=== PATIENT | male | born 1995 | race Caucasian/White ===

== ENCOUNTER 2017-09-03 20:22 | Emergency (ER) | payer MEDICAID ==
[~2017-09-03] VITALS: Ht 185.4 cm; Wt 77.1 kg
[2017-09-03 20:30] VITALS: BP_SYST 141
--- NOTE | 2017-09-03 20:50 | NUR ---
Placed in room H1 . Brought in by care BLS. Placed on hull and deck remover, blood pressure machine and pulse oximeter. To gown for exam. Side rails up. Report given to RODRIGUE Guerra.
--- NOTE | 2017-09-03 20:55 | NUR ---
Patient to ER via BLS ambulance with c/o lower abdominal pain, rectal bleeding and nausea x 1 day. Patient denies vomiting, or diarrhea. Patient reports that he was seen in an outside hospital([place]) yesterday for same complaint, had workup which was negative per patient. Patient able to ambulate from ambulance gurney to ER [facility] with slow, steady gait in no acute distress. Patient awaiting evaluation by ER MD. Will continue to observe and assess.
--- NOTE | 2017-09-03 21:50 | NUR ---
Patient resting quietly in no acute distress, awaiting evaluation by ER MD. Will continue to observe and assess.
--- NOTE | 2017-09-03 22:50 | NUR ---
Dr Almonte at bedside to evaluate patient.
[2017-09-03] MEDS ORDERED: OXYCODONE/ACETAMINOPHEN 5-325 TABLET PO ONE (23:00)
[2017-09-03] MEDS ORDERED: ONDANSETRON 4 MG ODT TAB PO ONE (23:00)
--- NOTE | 2017-09-03 23:10 | NUR ---
Patient sitting at side of gurney with legs dangling over the side in no acute distress. Will continue to observe and assess.
--- NOTE | 2017-09-03 23:55 | NUR ---
Patient resting quietly in no acute distress, sitting on the side of the gurney with legs dangling. Patient reports no change in pain after taking the pain medication. Will notify Dr Almonte
--- NOTE | 2017-09-04 00:35 | NUR ---
Patient moved to bed 7. Patient resting quietly in no acute distress.
--- NOTE | 2017-09-04 01:30 | NUR ---
Patient resting quietly in no acute distress with female visitor at bedside. Will continue to observe and assess.
--- NOTE | 2017-09-04 02:30 | NUR ---
Assessment remains unchanged-awaiting dispo.
--- NOTE | 2017-09-04 03:00 | NUR ---
Dr Almonte at bedside speaking with patient regarding plan of care, questions answered by Dr Almonte.
--- NOTE | 2017-09-04 03:13 | NUR ---
Patient to radiology for CT scan of abdomen and pelvis without contrast. Patient ambulating with slow, steady gait. Awaiting results and dispo.
--- NOTE | 2017-09-04 03:24 | NUR ---
Patient back from CT scan in stable condition.
--- NOTE | 2017-09-04 03:26 | NUR ---
Dr Almonte is aware of patient's pain level. Patient is able to ambulate with slow, steady gait without difficulty-no increase in pain or sob upon exertion. Skins are warm and dry to touch. Female visitor at bedside.
[2017-09-04 04:46] VITALS: BP_SYST 115
--- NOTE | 2017-09-04 04:46 | NUR ---
Patient given written and verbal discharge instructions and verbalizes understanding. ER MD discussed with patient the results and treatment provided. Patient in stable condition. ID arm band removed. IV catheter removed intact and dressing applied, no active bleeding. Rx of Bascom given. Patient educated on pain management and to follow up with PMD. Pain Scale 0/10 . Opportunity for questions provided and answered.
== END 2017-09-04 04:46 | disposition home or self-care (01) ==
LOC: SED 20:22
DX: K62.5 Hemorrhage of anus and rectum (principal); R10.32 Left lower quadrant pain; R11.0 Nausea
CPT/HCPCS: 74176; 99284; Q0162

== ENCOUNTER 2017-09-16 13:01 | Emergency (ER) | payer MEDICAID ==
[~2017-09-16] VITALS: Ht 185.4 cm; Wt 79.4 kg
--- NOTE | 2017-09-16 13:18 | NUR ---
Called for pt unabel to locate pt for triage.
--- NOTE | 2017-09-16 13:32 | NUR ---
Called for pt to be triaged, unable to locate pt.
[2017-09-16 13:46] VITALS: BP_SYST 150
[2017-09-16 14:16] LABS: HEMATOCRIT 47.3 % (36-54); HEMOGLOBIN 15.6 g/dL (14.0-18.0); LYMPHOCYTES # (AUTO) 1.5 K/uL (1.0-5.5); LYMPHOCYTES % (AUTO) 13.6 % (20.5-51.5); MEAN CORPUSCULAR HEMOGLOBIN 31 pg (27-31); MEAN CORPUSCULAR HGB CONC 33 % (32-36); MEAN CORPUSCULAR VOLUME 95 fL (79.0-98.0); MONOCYTES # (AUTO) 0.5 K/uL (0.0-1.0); MONOCYTES % (AUTO) 4.2 % (1.7-9.3); NEUTROPHILS # (AUTO) 8.4 K/uL (1.8-7.7); PLATELET COUNT (AUTO) 307 K/uL (130-430); RED BLOOD CELL COUNT(AUTO) 4.98 MIL/uL (4.2-6.2); RED CELL DISTRIBUTION WIDTH 12.9 % (9.0-15.0); WHITE BLOOD COUNT (AUTO) 10.8 K/uL (4.8-10.8)
[2017-09-16 14:19] LABS: BASOPHILS # (AUTO) 0.1 K/uL (0.0-0.2); BASOPHILS % (AUTO) 0.6 % (0.0-2.0); EOSINOPHILS # (AUTO) 0.2 K/uL (0.0-0.4); EOSINOPHILS % (AUTO) 1.6 % (0.0-4.0)
[2017-09-16 14:36] LABS: CALCIUM 9.4 mg/dL (8.4-11.0); CREATININE 1.05 mg/dL (0.55-1.30); POTASSIUM 4.7 mmol/L (3.5-5.1)
[2017-09-16 14:41] LABS: ALBUMIN 4.2 g/dL (3.4-4.8); TOTAL BILIRUBIN 0.2 mg/dL (0.0-1.0)
[2017-09-16 14:47] LABS: PROTHROMBIN TIME 10.4 SECS (9.5-12.5)
--- NOTE | 2017-09-16 16:20 | NUR ---
Patient states that he has to go. His ride is leaving. I advised the patient that he should stay for medical evaluation. Patient states he will return later. I discussed with the patient that this is ill advised and he is putting himself at risk. Patient states he is leaving anyway.
== END 2017-09-16 16:20 | disposition left against medical advice (07) ==
LOC: SED 13:01
DX: K62.5 Hemorrhage of anus and rectum (principal); Z53.21 Procedure and treatment not carried out due to patient leaving prior to being seen by health care provider
CPT/HCPCS: 36415; 80053; 85025; 85610-TC; 85730-TC; 99281

== ENCOUNTER 2017-09-16 19:31 | Emergency (ER) | payer MEDICAID ==
[~2017-09-16] VITALS: Ht 185.4 cm; Wt 79.4 kg
[2017-09-16 19:37] VITALS: BP_SYST 119
--- NOTE | 2017-09-16 20:42 | NUR ---
Note long in EDM - 09/17/17 at 0358 by DESIREE Patient given written and verbal discharge instructions and verbalizes understanding. ER discussed with patient the results and treatment provided. Patient in stable condition. ID arm band removed. Rx of Anuel and robertabizen given. Patient educated on pain management and to follow up with PMD. Pain Scale 0/10. Opportunity for questions provided and answered.
--- NOTE | 2017-09-16 20:58 | NUR ---
Patient to ER bed 7 to gown for evaluation. Side rails up.
--- NOTE | 2017-09-16 21:00 | NUR ---
Pt came in for one month of intermittent rectal bleeding with abd pain. Denies N,V, and D. Will continue to monitor. No distress noted.
--- NOTE | 2017-09-16 21:05 | NUR ---
ER Dr. Randolph at bedside examining patient.
--- NOTE | 2017-09-16 21:10 | NUR ---
Note robbieone in EDM - 09/17/17 at 0414 by DESIREE Patient given written and verbal discharge instructions and verbalizes understanding. ER discussed with patient the results and treatment provided. Patient in stable condition. ID arm band removed. Rx of Anuel and robertabid given. Patient educated on pain management and to follow up with PMD. Pain Scale 0/10. Opportunity for questions provided and answered.
[2017-09-16 21:15] VITALS: BP_SYST 119
--- NOTE | 2017-09-16 21:15 | NUR ---
Note long in EDM - 09/17/17 at 0433 by DESIREE Patient given written and verbal discharge instructions and verbalizes understanding. ER discussed with patient the results and treatment provided. Patient in stable condition. ID arm band removed. Rx of Anuel and robertabid given. Patient educated on pain management and to follow up with PMD. Pain Scale 0/10. Opportunity for questions provided and answered.
--- NOTE | 2017-09-16 21:15 | NUR ---
Patient given written and verbal discharge instructions and verbalizes understanding. ER MD discussed with patient the results and treatment provided. Patient in stable condition. ID arm band removed. Rx of flagyl and norco given. Patient educated on pain management and to follow up with PMD. Pain Scale 0/10. Opportunity for questions provided and answered.
== END 2017-09-16 21:15 | disposition home or self-care (01) ==
LOC: SED 19:31
DX: K62.5 Hemorrhage of anus and rectum (principal); K52.9 Noninfective gastroenteritis and colitis, unspecified
CPT/HCPCS: 99283

== ENCOUNTER 2018-07-02 19:46 | Emergency (ER) | payer MEDICAID ==
[~2018-07-02] VITALS: Ht 177.8 cm; Wt 81.6 kg
--- NOTE | 2018-07-02 19:55 | NUR ---
Patient to ER bed 4 to gown for evaluation. Side rails up. Report given to Charlie HUSAIN.
[2018-07-02 20:00] VITALS: BP_SYST 129
--- NOTE | 2018-07-02 20:00 | NUR ---
Patient to ER via triage with c/o abdominal cramping with blood in stool x 3 days, patient is awake, alert and oriented in no acute distress, vital signs stable, respirations even and unlabored, skin warm and dry to touch. Patient able to ambulate without difficulty to bed 4 with slow, steady gait. Awaiting evaluation by ER MD, will continue to observe and assess.
--- NOTE | 2018-07-02 20:01 | NUR ---
Dr Mendieta at bedside to evaluate patient.
[2018-07-02] MEDS ORDERED: NACL 0.9% 1,000 ML IV ONE (20:09)
--- NOTE | 2018-07-02 20:35 | NUR ---
Patient to CT scan in stable condition via gurney.
[2018-07-02] MEDS ORDERED: IOHEXOL 100 ML IV ONE (20:36)
--- NOTE | 2018-07-02 20:45 | NUR ---
Patient returned from CT scan in stable condition via gurney, awaiting results and dispo.
[2018-07-02 20:46] LABS: BILIRUBIN,URINE NEGATIVE (NEGATIVE); BLOOD, URINE NEGATIVE (NEGATIVE); CLARITY/URINE CLEAR (CLEAR); COLOR,URINE YELLOW (YELLOW); GLUCOSE,URINE NEGATIVE (NEGATIVE); KETONES,URINE NEGATIVE (NEGATIVE); LEUKOCYTE ESTERASE ,URINE NEGATIVE (NEGATIVE); NITRITE, URINE NEGATIVE (NEGATIVE); PROTEIN URINE NEGATIVE (NEGATIVE); UROBILINOGEN,URINE 0.2 (0.2-1.0)
[2018-07-02 20:49] LABS: BASOPHILS # (AUTO) 0.1 K/uL (0.0-0.2); BASOPHILS % (AUTO) 1.2 % (0.0-2.0); EOSINOPHILS # (AUTO) 0.1 K/uL (0.0-0.4); EOSINOPHILS % (AUTO) 1.6 % (0.0-4.0); HEMATOCRIT 45.1 % (36-54); HEMOGLOBIN 14.9 g/dL (14.0-18.0); LYMPHOCYTES # (AUTO) 2.7 K/uL (1.0-5.5); LYMPHOCYTES % (AUTO) 32.7 % (20.5-51.5); MEAN CORPUSCULAR HEMOGLOBIN 32 pg (27-31); MEAN CORPUSCULAR HGB CONC 33 % (32-36); MEAN CORPUSCULAR VOLUME 96 fL (79.0-98.0); MONOCYTES # (AUTO) 0.7 K/uL (0.0-1.0); MONOCYTES % (AUTO) 7.9 % (1.7-9.3); NEUTROPHILS # (AUTO) 4.8 K/uL (1.8-7.7); NEUTROPHILS % (AUTO) 56.6 % (40.0-70.0); PLATELET COUNT (AUTO) 271 K/uL (130-430); RED BLOOD CELL COUNT(AUTO) 4.71 MIL/uL (4.2-6.2); RED CELL DISTRIBUTION WIDTH 12.8 % (9.0-15.0); WHITE BLOOD COUNT (AUTO) 8.4 K/uL (4.8-10.8)
[2018-07-02 20:59] LABS: CALCIUM 9.2 mg/dL (8.4-11.0); CREATININE 0.99 mg/dL (0.55-1.30)
[2018-07-02 21:04] LABS: ALBUMIN 3.9 g/dL (3.4-4.8); TOTAL BILIRUBIN 0.3 mg/dL (0.0-1.0)
--- NOTE | 2018-07-02 21:45 | NUR ---
Patient resting quietly in no acute distress, awaiting results and dispo. Will continue to observe and assess.
--- NOTE | 2018-07-02 22:00 | NUR ---
Patient reports that he is unable to provide a stool sample at this time. Awaiting imaging results and dispo.
--- NOTE | 2018-07-02 23:00 | NUR ---
Patient resting quietly in no acute distress with slow, even respirations, skin warm and dry to touch. Awaiting dispo.
[2018-07-02] MEDS ORDERED: metroNIDAZOLE 500 MG TABLET PO ONE (23:30)
[2018-07-02 23:50] VITALS: BP_SYST 121
--- NOTE | 2018-07-02 23:50 | NUR ---
Note undone in EDM - 07/03/18 at 0011 by [email or web address] Patient given written and verbal discharge instructions and verbalizes understanding. ER MD discussed with patient the results and treatment provided. Patient in stable condition. ID arm band removed. IV catheter removed intact and dressing applied, no active bleeding. Rx of Stephon given. Patient educated on pain management and to follow up with PMD. Pain Scale 3/10 tolerable for patient. Opportunity for questions provided and answered. Medication side effect fact sheet provided.
--- NOTE | 2018-07-02 23:50 | NUR ---
Patient given written and verbal discharge instructions and verbalizes understanding. ER MD discussed with patient the results and treatment provided. Patient in stable condition. ID arm band removed. IV catheter removed intact and dressing applied, no active bleeding. Rx of Morris and Flagyl given. Patient educated on pain management and to follow up with PMD. Pain Scale 3/10. Opportunity for questions provided and answered. Medication side effect fact sheet provided.
== END 2018-07-02 23:50 | disposition home or self-care (01) ==
LOC: SED 19:46
DX: K52.9 Noninfective gastroenteritis and colitis, unspecified (principal); F17.210 Nicotine dependence, cigarettes, uncomplicated; Z98.890 Other specified postprocedural states
CPT/HCPCS: 36415; 74177; 80053; 81003; 85025; 96360; 96361; 99285; J7030; Q9967

== ENCOUNTER 2018-07-21 13:43 | Emergency (ER) | payer MEDICAID ==
[~2018-07-21] VITALS: Ht 180.3 cm; Wt 85.3 kg
[2018-07-21 13:49] VITALS: BP_SYST 136
[2018-07-21] MEDS ORDERED: NACL 0.9% 1,000 ML IV ONE (14:19)
[2018-07-21 14:27] LABS: BILIRUBIN,URINE NEGATIVE (NEGATIVE); BLOOD, URINE NEGATIVE (NEGATIVE); CLARITY/URINE CLEAR (CLEAR); COLOR,URINE YELLOW (YELLOW); GLUCOSE,URINE NEGATIVE (NEGATIVE); KETONES,URINE NEGATIVE (NEGATIVE); LEUKOCYTE ESTERASE ,URINE TRACE (NEGATIVE); NITRITE, URINE NEGATIVE (NEGATIVE); PROTEIN URINE NEGATIVE (NEGATIVE); UROBILINOGEN,URINE 0.2 (0.2-1.0)
[2018-07-21 14:30] LABS: BASOPHILS % (AUTO) 0.5 % (0.0-2.0); EOSINOPHILS # (AUTO) 0.1 K/uL (0.0-0.4); EOSINOPHILS % (AUTO) 1.1 % (0.0-4.0); HEMATOCRIT 42.6 % (36-54); HEMOGLOBIN 14.4 g/dL (14.0-18.0); LYMPHOCYTES # (AUTO) 2.1 K/uL (1.0-5.5); MEAN CORPUSCULAR HEMOGLOBIN 32 pg (27-31); MEAN CORPUSCULAR HGB CONC 34 % (32-36); MEAN CORPUSCULAR VOLUME 94 fL (79.0-98.0); MONOCYTES # (AUTO) 0.6 K/uL (0.0-1.0); MONOCYTES % (AUTO) 8.1 % (1.7-9.3); NEUTROPHILS # (AUTO) 4.1 K/uL (1.8-7.7); NEUTROPHILS % (AUTO) 59.3 % (40.0-70.0); PLATELET COUNT (AUTO) 244 K/uL (130-430); RED BLOOD CELL COUNT(AUTO) 4.52 MIL/uL (4.2-6.2); RED CELL DISTRIBUTION WIDTH 13.1 % (9.0-15.0); WHITE BLOOD COUNT (AUTO) 6.9 K/uL (4.8-10.8)
[2018-07-21] MEDS ORDERED: KETOROLAC TROMETHAMINE 30 MG VIAL IVP ONE (14:30)
[2018-07-21] MEDS ORDERED: ONDANSETRON HCL 4 MG/2 ML VIAL IVP ONE (14:30)
[2018-07-21 14:37] LABS: CREATININE 1.04 mg/dL (0.55-1.30); POTASSIUM 3.9 mmol/L (3.5-5.1)
[2018-07-21 14:39] LABS: BACTERIA,URINE RARE /HPF (None Seen); MUCUS,URINE None Seen /LPF (None Seen); RBC,URINE 0-3 /HPF (0-3); WBC,URINE 0-3 /HPF (0-3)
[2018-07-21 14:44] LABS: ALBUMIN 4.1 g/dL (3.4-4.8); TOTAL BILIRUBIN 0.3 mg/dL (0.0-1.0)
[2018-07-21 16:28] VITALS: BP_SYST 134
== END 2018-07-21 16:28 | disposition home or self-care (01) ==
LOC: SED 13:43
DX: K62.5 Hemorrhage of anus and rectum (principal); R03.0 Elevated blood-pressure reading, without diagnosis of hypertension; Z87.891 Personal history of nicotine dependence
CPT/HCPCS: 36415; 80053; 81000; 83690; 85025; 87086; 96361; 96374; 96375; 99284; J1885; J2405; J7030

== ENCOUNTER 2018-10-19 19:43 | Emergency (ER) | payer MEDICAID, OTHER ==
[~2018-10-19] VITALS: Ht 180.3 cm; Wt 86.2 kg
[2018-10-19 20:02] VITALS: BP_SYST 148
[2018-10-19] MEDS ORDERED: KETOROLAC TROMETHAMINE 30 MG VIAL IM ONE (20:15)
[2018-10-19] MEDS ORDERED: traMADol HCL HCL 50 MG TABLET (ULTRAM) PO ONE (21:15)
[2018-10-19 21:30] VITALS: BP_SYST 145
== END 2018-10-19 21:30 | disposition home or self-care (01) ==
LOC: SED 19:43
DX: K03.81 Cracked tooth (principal); K04.7 Periapical abscess without sinus
CPT/HCPCS: 96372; 99283; J1885

== ENCOUNTER 2019-10-17 11:41 | Emergency (ER) | payer OTHER ==
[~2019-10-17] VITALS: Ht 177.8 cm; Wt 81.6 kg
[2019-10-17 11:58] VITALS: BP_SYST 112
--- NOTE | 2019-10-17 12:02 | NUR ---
Patient to ER bed 5 to gown for evaluation. Side rails up. Report given to JESUS HUSAIN.
--- NOTE | 2019-10-17 12:03 | NUR ---
Patient is awake, alert, and oriented x4. Patient is complaining of left ring finger pain 10/10, laceration to finger. Patient reports that he had a ring stuck on it with swelling. Ring was cut off in triage by RODRIGUE Monsivais.
--- NOTE | 2019-10-17 12:18 | NUR ---
ER Dr. Randolph at bedside examining patient.
[2019-10-17 12:40] VITALS: BP_SYST 112
--- NOTE | 2019-10-17 12:40 | NUR ---
Patient given written and verbal discharge instructions and verbalizes understanding. ER MD discussed with patient the results and treatment provided. Patient in stable condition. ID arm band removed. Patient educated on pain management and to follow up with PMD. Pain Scale 0/10. Opportunity for questions provided and answered. Medication side effect fact sheet provided.
[2019-10-17] MEDS ORDERED: BACITRACIN 1 GM OINT TP ONE (12:47)
[2019-10-17] MEDS ORDERED: BACITRACIN OPHTHALMIC OINT.3.5 GM OP SCH (21:00)
== END 2019-10-17 12:40 | disposition home or self-care (01) ==
LOC: SED 11:41
DX: M79.89 Other specified soft tissue disorders (principal); M79.645 Pain in left finger(s)
CPT/HCPCS: 99284

== ENCOUNTER 2022-04-28 16:19 | Emergency (ER) | payer OTHER ==
[~2022-04-28] VITALS: Ht 182.9 cm; Wt 74.8 kg
--- NOTE | 2022-04-28 16:22 | NUR ---
MD PAGE BEDSIDE FOR ASSESS.
[2022-04-28 16:25] VITALS: BP_SYST 122
--- NOTE | 2022-04-28 16:25 | NUR ---
PT TRIAGED AND TAKEN TO ROOM 5, REPORT GIVEN TO RODRIGUE PARSONS. PT STATES HE IS HAVING SEIZURE ACTIVITY AND C/P. PT NOTED WITH TREMORS. PT IS AAOX4. RESP E/U. NO R/A. PT DENIES N/V/D/C. PT HR IN 110S. REPORTS HX OF ASTHMA, PT IS PRESSENTLY TAKING PREDNISONE FOR ASTHMA AND ABT FOR UNKNOWN REASON. PT DISCHARGED FROM [facility] 04/27/2022 FOR DX OF ANXIETY. SIDERAILS UP X2.
--- NOTE | 2022-04-28 16:26 | NUR ---
DR. PAGE AT BEDSIDE.
[2022-04-28 17:17] LABS: BASOPHILS % (AUTO) 0.3 % (0.0-2.0); HEMATOCRIT 38.6 % (36-54); LYMPHOCYTES # (AUTO) 1.2 K/uL (1.0-5.5); LYMPHOCYTES % (AUTO) 10.4 % (20.5-51.5); MEAN CORPUSCULAR HEMOGLOBIN 31 pg (27-31); MEAN CORPUSCULAR HGB CONC 34 % (32-36); MEAN CORPUSCULAR VOLUME 93 fL (79.0-98.0); MONOCYTES # (AUTO) 0.5 K/uL (0.0-1.0); MONOCYTES % (AUTO) 3.8 % (1.7-9.3); NEUTROPHILS # (AUTO) 10.1 K/uL (1.8-7.7); NEUTROPHILS % (AUTO) 85.5 % (40.0-70.0); PLATELET COUNT (AUTO) 254 K/uL (130-430); RED BLOOD CELL COUNT(AUTO) 4.17 MIL/uL (4.2-6.2); RED CELL DISTRIBUTION WIDTH 15.6 % (9.0-15.0); WHITE BLOOD COUNT (AUTO) 11.8 K/uL (4.8-10.8)
[2022-04-28 17:21] LABS: ANION GAP 9 (5-15); CALCIUM 8.6 mg/dL (8.4-11.0); CHLORIDE 103 mmol/L (98-107); CREATININE 0.96 mg/dL (0.55-1.30); GLUCOSE 110 mg/dL (70-99); POTASSIUM 3.8 mmol/L (3.5-5.1); SODIUM SERUM 137 mmol/L (136-145); UREA NITROGEN, BLOOD 16 mg/dL (8-21)
[2022-04-28 17:23] LABS: GFR AFRICAN AMERICAN 120 mL/min (>90)
[2022-04-28 17:35] LABS: BARBITURATE, URINE NEGATIVE (NEG <=200); BENZODIAZEPINE, URINE NEGATIVE (NEG <=150); CANNABINOID, URINE NEGATIVE (NEG <=50); COCAINE, URINE NEGATIVE (NEG <=150); METHAMPHETAMINES SCREEN,URINE NEGATIVE (NEG <=500); OPIATE, URINE NEGATIVE (NEG <=100); PHENCYCLIDINE SCREEN,URINE NEGATIVE (NEG <=25); UR TRICYCLIC ANTIDEPRESSANTS NEGATIVE (NEG <=300); URINE AMPHETAMINE NEGATIVE (NEG <=500); URINE METHADONE NEGATIVE (NEG <=200); URINE OXYCODONE SCREEN NEGATIVE (NEG <=100); URINE PROPOXYPHENE SCREEN NEGATIVE (NEG <=300)
[2022-04-28 17:35] LABS: ALANINE AMINOTRANSFERASE 18 U/L (12-78); ALBUMIN 3.3 g/dL (3.4-4.8); ASPARTATE AMINOTRANSFERASE 13 U/L (10-37); TOTAL BILIRUBIN 0.2 mg/dL (0.0-1.0)
[2022-04-28 17:37] LABS: ACETAMINOPHEN < 1 ug/mL (1-30); ALCOHOL, BLOOD < 3 mg/dL (<10)
[2022-04-28] MEDS ORDERED: ALPR0.5T PO (18:07)
[2022-04-28] MEDS ORDERED: ALPRAZolam 0.25 MG TABLET PO ONE (18:15)
--- NOTE | 2022-04-28 18:20 | NUR ---
Patient given written and verbal discharge instructions and verbalizes understanding. Given copies of tests performed during visit. Patient is awake, alert and oriented. Ambulatory with steady gait. Refuses offer of [facility] placement. Given list of available shelters in surrounding areas.
[2022-04-28 18:35] VITALS: BP_SYST 127
== END 2022-04-28 18:52 | disposition home or self-care (01) ==
LOC: SED 16:19
DX: F41.9 Anxiety disorder, unspecified (principal); R55 Syncope and collapse; Z79.899 Other long term (current) drug therapy
CPT/HCPCS: 99285; 71045; 80307; 80053; 82550; 85025; 36415; 93005; 81002; G0482; G0480; G0481